=== PATIENT | male | born 1955 | race Caucasian/White ===

== ENCOUNTER 2020-07-31 10:57 | Day surgery (SDC) | payer OTHER ==
[2020-07-27 09:46] VITALS: BMI 20.7
[~2020-07-31 10:57] MED LIST: ONDANSETRON 4 MG/2 ML VIAL IVP PRN
[2020-07-31] MEDS: LACTATED RINGERS 1,000 ML IV SCH ×2 (11:15→11:20)
[2020-07-31] MEDS ORDERED: LIDOCAINE 1% (10MG/ML) FOR IV START INTRADERMA ONE (11:20)
[2020-07-31 11:34] VITALS: TEMP 97.8
[2020-07-31] MEDS ORDERED: LIDOCAINE 1% INJ 10MG/ML (20 ML MDV) ONE (12:11)
[2020-07-31] MEDS ORDERED: PROPOFOL 10 MG/ML 20 ML VIAL IV ONE (12:11)
--- NOTE | 2020-07-31 12:55 | P.PCN ---
Date of Procedure: 07/31/20 Description of Procedure: Brief history: Patient is a pleasant 65-year-old male presents for outpatient esophagogastroduodenoscopy and colonoscopy for evaluation of GERD and screening for malignant neoplasm colon. Long-standing history of reflux. Currently takes Tums as needed for reflux. No prior EGD or colonoscopy. No family history of colon cancer. Procedure performed: Esophagogastroduodenoscopy with biopsy Colonoscopy Estimated blood loss: Minimal. Preoperative diagnosis: Anesthesia: MAC Procedure: After informed consent was obtained from the patient was brought into the endoscopy unit and IV sedation was administered by anesthesia under continuous monitoring. Initially upper endoscopy was done. The Olympus GF 190 video endoscope was inserted into the mouth and esophagus intubated without any difficulty and was gradually advanced into the stomach and duodenum and carefu lly examined. The bulb and second part of the duodenum appeared normal, with biopsies taken to rule out celiac sprue. The scope was then withdrawn into the stomach adequately insufflated with air and upon careful examination the antrum and body, cardia and fundus appeared normal, except for some mild punctate erythema throughout the entire stomach suggestive of mild gastritis with biopsies of antrum and body taken. The scope was then withdrawn into the esophagus. The GE junction was located at 40 cm to the incisors. It appeared regular with no erythema erosions or ulcerations. Rest of the esophagus appeared normal, with lower esophageal biopsies taken. Patient tolerated the procedure well. At this time the patient continued to remain sedation. Initial digital rectal examination was normal. Olympus CF 190 video colonoscope was then inserted into the rectum and gradually advanced to the cecum without any difficulty. Careful examination was performed as the scope was gradually being withdrawn. The prep was excellent. The cecum, ascending colon, transverse colon, descending colon, sigmoid colon and rectum appeared normal, with a few scattered diverticula noted in the sigmoid colon. Retroflexion was performed in the rectum and no lesions were noted, low-grade internal hemorrhoids seen. Patient tolerated the procedure well. Impression: 1. Mild gastritis. Biopsies of the duodenum, antrum body and lower esophagus. 2. Mild sigmoid diverticulosis. Internal hemorrhoids. Otherwise normal- appearing colon from rectum to cecum. Recommendations: Findings of this examination were discussed with the patient as well as his family. Okay to resume diet. Okay to resume medications. Recommend fiber supplementation. Recommend repeat colonoscopy in 10 years for screening for malignant neoplasm of the colon or sooner if signs or symptoms which warrant further evaluation develop.
[2020-07-31 13:07] VITALS: BP 132/78; PULSE 62; RESP 16
== END 2020-07-31 13:24 | disposition home or self-care (01) ==
LOC: ORWHC2ENDO 10:57
PROVIDERS: ATTEND Internal Medicine
DX: Z12.11 Encounter for screening for malignant neoplasm of colon (principal); K57.30 Diverticulosis of large intestine without perforation or abscess without bleeding; K29.50 Unspecified chronic gastritis without bleeding; K29.80 Duodenitis without bleeding; K21.9 Gastro-esophageal reflux disease without esophagitis; K64.8 Other hemorrhoids; Z79.82 Long term (current) use of aspirin; Z90.89 Acquired absence of other organs; Z98.890 Other specified postprocedural states; F17.200 Nicotine dependence, unspecified, uncomplicated; G43.909 Migraine, unspecified, not intractable, without status migrainosus
CPT/HCPCS: 88305; 88342; 43239; J2001; J2704; G0121; 45378

== ENCOUNTER 2021-01-14 15:06 | Emergency (ER) | payer OTHER ==
[2021-01-14 16:06] VITALS: BP 148/80; PULSE 79; RESP 18; TEMP 98.5
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
== END 2021-01-14 18:36 | disposition home or self-care (01) ==
LOC: EC 15:06
DX: S22.20XA Unspecified fracture of sternum, initial encounter for closed fracture (principal); F17.200 Nicotine dependence, unspecified, uncomplicated; V49.9XXA Car occupant (driver) (passenger) injured in unspecified traffic accident, initial encounter
CPT/HCPCS: 71046; 71120; 93005; 99284

== ENCOUNTER 2021-01-22 10:08 | Emergency (ER) | payer OTHER ==
[2021-01-22 10:24] VITALS: BP 143/85; PULSE 78; RESP 18; TEMP 98.2
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
== END 2021-01-22 14:04 | disposition home or self-care (01) ==
LOC: EC 10:08
DX: R51.9 Headache, unspecified (principal); H93.13 Tinnitus, bilateral; F17.200 Nicotine dependence, unspecified, uncomplicated; V43.52XA Car driver injured in collision with other type car in traffic accident, initial encounter
CPT/HCPCS: 70450; 72125; 99284

== ENCOUNTER → 2021-02-21 | Outpatient (CLI) | payer OTHER ==
--- NOTE | 2021-02-21 13:42 | MR ---
EXAMINATION TYPE: MR brain and iac wo/w con DATE OF EXAM: 02/21/2021 1:20 PM COMPARISON: NONE HISTORY: Hearing loss TECHNIQUE: Multiplanar and multispin-echo imaging of the brain was performed both before and after the administr ation of contrast. High-resolution images are obtained of the internal auditory canals performed uti lizing 6 mL intravenous Gadavist contrast. The ventricles, basal cisterns and sulci overlying the cerebral convexities are within normal limits. There is no evidence for midline shift or mass effect. Acute intracranial hemorrhage or extra-axial collection is not evident. There are no abnormal areas of increased or decreased signal intensity within the brain parenchyma. High-resolution imaging of the internal auditory canals fails demonstrate evidence for an enhancing a coustic schwannoma or cerebellopontine cistern angle mass. Following contrast administration, there is no evidence for pathologic enhancement or enhancing mass. The paranasal sinuses and mastoid air cells are well-aerated. IMPRESSION: 1. No evidence of acoustic schwannoma or cerebellopontine angle mass.
== END | disposition home or self-care (01) ==
LOC: RADMRIMAIN 12:12
PROVIDERS: ATTEND Otolaryngology
DX: H93.19 Tinnitus, unspecified ear (principal)
CPT/HCPCS: 70553; A9585

== ENCOUNTER 2021-08-05 11:51 | Emergency (ER) | payer OTHER ==
[2021-08-05] MEDS ORDERED: SODIUM CHLORIDE 0.9% 1,000 ML IV STA (12:48)
[2021-08-05] MEDS ORDERED: ONDANSETRON 4 MG/2 ML VIAL IVP STA (12:48)
[2021-08-05] MEDS ORDERED: PANTOPRAZOLE 40 MG/10 ML VIAL IVP STA (12:48)
--- NOTE | 2021-08-05 12:54 | ED ---
General Adult HPI - General Chief complaint: Recheck/Abnormal Lab/Rx Stated complaint: Anorexia Time Seen by Provider: 08/05/21 12:39 Source: patient, RN notes reviewed Mode of arrival: ambulatory Limitations: no limitations - History of Present Illness Initial comments: Patient is a pleasant 66-year-old male presenting to the emergency department with concerns for not feeling well for the past 6 or 7 years. Patient's appetite has been down. Patient states he gets hungry however becomes full. Quickly. Patient did have upper and lower scope done around a year ago and those were reported as normal. Patient's son does have history of hernia, pos sible hiatal hernia as well as gallbladder problems and patient questions if he has similar. Patient once on ENT and had a scope done from them as well with concerns for some reflux. Patient was placed on medication with some improvement of symptoms. Patient has been fatigued. - Related Data Home Medications Medication Instructions Recorded Confirmed Aspirin [Adult Low Dose Aspirin EC] 81 mg PO DAILY 07/27/20 07/31/20 Calcium Carbonate [Tums] 500 mg PO DIRECTED PRN 07/27/20 07/31/20 Previous Rx's Medication Instructions Recorded Pantoprazole [Protonix] 40 mg PO DAILY #30 tab 08/05/21 Allergies Allergy/AdvReac Type Severity Reaction Status Date / Time No Known Allergies Allergy Verified 01/22/21 10:24 Review of Systems ROS Statement: Those systems with pertinent positive or pertinent negative responses have been documented in the HPI. ROS Other: All systems not noted in ROS Statement are negative. Constitutional: Denies: fever Eyes: Denies: eye pain ENT: Denies: ear pain Respiratory: Denies: dyspnea Cardiovascular: Denies: chest pain Endocrine: Reports: fatigue Gastrointestinal: Reports: as per HPI. Denies: vomiting, diarrhea Genitourinary: Denies: dysuria Musculoskeletal: Denies: back pain Skin: Denies: rash Neurological: Denies: weakness Past Medical History Past Medical History: GERD/Reflux Additional Past Medical History / Comment(s): migraines, heart murmer, hx rheumatic fever as child, History of Any Multi-Drug Resistant Organisms: None Reported Past Surgical History: Tonsillectomy Additional Past Surgical History / Comment(s): eye surgery age 4 for lazy eye, Past Anesthesia/Blood Transfusion Reactions: Motion Sickness Past Psychological History: No Psychological Hx Reported Smoking Status: Current every day smoker Past Alcohol Use History: Rare Past Drug Use History: Marijuana - Past Family History Mother Family Medical History: Cancer Additional Family Medical History / Comment(s): breast Sister(s) Family Medical History: Cancer Additional Family Medical History / Comment(s): breast General Exam Limitations: no limitations General appearance: alert, in no apparent distress Head exam: Present: normocephalic Eye exam: Present: normal appearance Neck exam: Present: normal inspection Respiratory exam: Present: normal lung sounds bilaterally Cardiovascular Exam: Present: regular rate, normal rhythm GI/Abdominal exam: Present: soft, normal bowel sounds. Absent: distended, tend erness, guarding, rebound, rigid, pulsatile mass Extremities exam: Present: normal inspection Neurological exam: Present: alert Psychiatric exam: Present: normal affect, normal mood Skin exam: Present: normal color Course Vital Signs 08/05/21 08/05/21 12:30 13:48 Temperature 98.2 F 97.8 F Pulse Rate 82 81 Respiratory 18 20 Rate Blood Pressure 150/85 156/80 O2 Sat by Pulse 98 96 Oximetry Medical Decision Making - Medical Decision Making Patient reevaluated and resting comfortably in bed. Patient updated on results and need for follow-up. - Lab Data Result diagrams: 08/05/21 13:01 08/05/21 13:01 Lab Results 08/05/21 08/05/21 08/05/21 Range/Units 13:01 13:01 13:01 WBC 12.7 H (3.8-10.6) k/uL RBC 4.77 (4.30-5.90) m/uL Hgb 15.1 (13.0-17.5) gm/dL Hct 44.9 (39.0-53.0) % MCV 94.0 (80.0-100.0) fL MCH 31.7 (25.0-35.0) pg MCHC 33.7 (31.0-37.0) g/dL RDW 13.5 (11.5-15.5) % Plt Count 252 (150-450) k/uL MPV 8.3 Neutrophils % 81 % Lymphocytes % 13 % Monocytes % 4 % Eosinophils % 0 % Basophils % 0 % Neutrophils # 10.3 H (1.3-7.7) k/uL Lymphocytes # 1.7 (1.0-4.8) k/uL Monocytes # 0.5 (0-1.0) k/uL Eosinophils # 0.1 (0-0.7) k/uL Basophils # 0.0 (0-0.2) k/uL Sodium 135 L (137-145) mmol/L Potassium 4.2 (3.5-5.1) mmol/L Chloride 105 (98-107) mmol/L Carbon Dioxide 21 L (22-30) mmol/L Anion Gap 9 mmol/L BUN 11 (9-20) mg/dL Creatinine 0.95 (0.66-1.25) mg/dL Est GFR (CKD-EPI)AfAm >90 (>60 ml/min/1.73 sqM) Est GFR (CKD-EPI)NonAf 85 (>60 ml/min/1.73 sqM) Glucose 98 (74-99) mg/dL Calcium 9.5 (8.4-10.2) mg/dL Total Bilirubin 0.7 (0.2-1.3) mg/dL AST 28 (17-59) U/L ALT 26 (4-49) U/L Alkaline Phosphatase 183 H (38-126) U/L Total Protein 7.5 (6.3-8.2) g/dL Albumin 4.6 (3.5-5.0) g/dL Amylase 106 (30-110) U/L Lipase 186 (23-300) U/L Urine Color Yellow Urine Appearance Clear (Clear) Urine pH 5.5 (5.0-8.0) Ur Specific [place] 1.007 (1.001-1.035) Urine Protein Trace H (Negative) Urine Glucose (UA) Negative (Negative) Urine Ketones Negative (Negative) Urine Blood Negative (Negative) Urine Nitrite Negative (Negative) Urine Bilirubin Negative (Negative) Urine Urobilinogen <2.0 (<2.0) mg/dL Ur Leukocyte Esterase Negative (Negative) - Radiology Data Radiology results: report reviewed (Ultrasound shows borderline common bile duct size, otherwise no acute process.), image reviewed (Abdominal x-ray reveals no acute process.) Disposition Clinical Impression: Anorexia Disposition: HOME SELF-CARE Condition: Stable Instructions (If sedation given, give patient instructions): Anorexia Nervosa (ED), GERD (Gastroesophageal Reflux Disease) (ED) Additional Instructions: Please follow-up with primary care physician in the next couple days for recheck. Please also follow-up with gastroenterology, number provided. Consider HIDA scan. Prescription for medicine for your Stomach has been sent to pharmacy. Prescriptions: Pantoprazole [Protonix] 40 mg PO DAILY #30 tab Is patient prescribed a controlled substance at d/c from ED?: No Referrals: James Gunderson MD [STAFF PHYSICIAN] - 1-2 days Jocelin Dukes MD [STAFF PHYSICIAN] - 1-2 days Time of Disposition: 15:06
[2021-08-05 13:14] LABS: Appearance,Urine Clear (Clear); Bilirubin,Urine Negative (Negative); Blood,Urine Negative (Negative); Color,Urine Yellow; Glucose,Urine (UA) Negative (Negative); Ketones,Urine Negative (Negative); Leukocyte Esterase,Urine Negative (Negative); Nitrite,Urine Negative (Negative); PH, Urine 5.5 (5.0-8.0); Protein,Urine Trace (Negative); Specific Gravity,Urine 1.007 (1.001-1.035); Urobilinogen,Urine <2.0 mg/dL (<2.0)
--- NOTE | 2021-08-05 13:23 | XR ---
KUB HISTORY: Abdominal pain Frontal KUB and 2 images, no comparisons There is a spinal curvature present. Rotatory scoliosis is suspected convex right. There are degenera tive disc changes. No evident bowel obstruction or pneumoperitoneum. No pathologic calcification is e vident. Possible phleboliths within the pelvis. Oval densities over the midline may be related to sto ol within the rectum but are indeterminate. IMPRESSION: Nonspecific bowel gas pattern.
[2021-08-05 13:27] LABS: Basophils % (A) 0 %; Eosinophils # (A) 0.1 k/uL (0-0.7); Eosinophils % (A) 0 %; HCT 44.9 % (39.0-53.0); HGB 15.1 gm/dL (13.0-17.5); Lymphocytes # (A) 1.7 k/uL (1.0-4.8); Lymphocytes % (A) 13 %; MCH 31.7 pg (25.0-35.0); MCHC 33.7 g/dL (31.0-37.0); Mean Platelet Volume 8.3; Monocytes # (A) 0.5 k/uL (0-1.0); Monocytes % (A) 4 %; Neutrophils # (A) 10.3 k/uL (1.3-7.7); Neutrophils % (A) 81 %; Platelet Count 252 k/uL (150-450); RBC 4.77 m/uL (4.30-5.90); RDW 13.5 % (11.5-15.5); WBC 12.7 k/uL (3.8-10.6)
[2021-08-05 13:29] LABS: ALT 26 U/L (4-49); AST 28 U/L (17-59); African American GFR (CKD) >90 (>60 ml/min/1.73 sqM); Albumin 4.6 g/dL (3.5-5.0); Alkaline Phosphatase 183 U/L (38-126); Amylase 106 U/L (30-110); Anion Gap 9 mmol/L; Blood Urea Nitrogen 11 mg/dL (9-20); Calcium 9.5 mg/dL (8.4-10.2); Carbon Dioxide 21 mmol/L (22-30); Chloride 105 mmol/L (98-107); Glucose 98 mg/dL (74-99); Lipase 186 U/L (23-300); Non-African American GFR(CKD) 85 (>60 ml/min/1.73 sqM); Potassium 4.2 mmol/L (3.5-5.1); Sodium 135 mmol/L (137-145); Total Bilirubin 0.7 mg/dL (0.2-1.3); Total Protein 7.5 g/dL (6.3-8.2)
[2021-08-05 13:52] VITALS: RESP 20; TEMP 97.8
--- NOTE | 2021-08-05 14:01 | US ---
EXAMINATION TYPE: US gallbladder DATE OF EXAM: 08/05/2021 COMPARISON: NONE CLINICAL HISTORY: dysphagia. EXAM MEASUREMENTS: Liver Length: 11.4 cm Gallbladder Wall: 0.2 cm CBD: 0.7 cm Right Kidney: 10.8 x 3.7 x 4.4 cm Pancreas: Tail obscured by overlying bowel gas Liver: homogeneous Gallbladder: wnl Evidence for sonographic Chaves's sign: No CBD: Upper limit of normal patient's age group Right Kidney: wnl IMPRESSION: Borderline common bile duct measurement.
[2021-08-05 15:30] VITALS: BP 136/80; PULSE 84
== END 2021-08-05 15:29 | disposition home or self-care (01) ==
LOC: EC 11:51
DX: R63.0 Anorexia (principal); K21.9 Gastro-esophageal reflux disease without esophagitis; F17.200 Nicotine dependence, unspecified, uncomplicated; F12.90 Cannabis use, unspecified, uncomplicated; Z79.82 Long term (current) use of aspirin; Z79.899 Other long term (current) drug therapy; Z68.21 Body mass index [BMI] 21.0-21.9, adult
CPT/HCPCS: 36415; 80053; 82150; 83690; 85025; 81003; 74018; 76705; 99284; 96374; 96375; J2405; C9113

== ENCOUNTER → 2022-05-28 | Outpatient (CLI) | payer MEDICARE, OTHER ==
--- NOTE | 2022-05-28 08:33 | CTL ---
EXAMINATION TYPE: CT Low Dose Lung DATE OF EXAM ORDERED: 05/28/2022 HISTORY: Long-term tobacco use. Lung cancer screening CT DLP: 74.[address] CTDI: 1.7 mGy Automated exposure control for dose reduction was used. SCREENING VISIT: Baseline COMPARISON: None TECHNIQUE: Low dose computed tomography scan was performed through the chest at 1 mm thick sections a nd reconstructed images in multiple planes at 1 mm and [address] DIAGNOSTIC QUALITY: Satisfactory FINDINGS: LUNG NODULES: None. LUNGS: COPD: Severity: Mild Fibrosis: Severity: Mild left apical. More moderate right apical with calcification. Mild linear biba silar Lymph nodes: Other findings: Ascending aortic aneurysm up to 4.1 cm axial image 34 series 5. Linear density the le loulou of the aortic valve could reflect valvular calcification RIGHT PLEURAL SPACE: Effusion: None Calcification: Focal calcification superiorly in the apex Thickening: None Pneumothorax: None LEFT PLEURAL SPACE: Effusion: None Calcification: None Thickening: None Pneumothorax: None HEART: Heart Size: Normal Coronary Calcification: Mild Pericardial Effusion: None OTHER FINDINGS: Upper abdomen: None Bony thorax: There is slight S-shaped scoliosis Supraclavicular region: None Other: None IMPRESSION: Mild emphysematous change without suspicious nodules. CT LUNG RAD AND CT CHEST RECOMMENDATION: Lung-Rad 1 Negative: Continue annual screening with LDCT in 12 months. S Modifier (other clinically significant findings): S Ascending aortic aneurysm up to 4.1 cm. Possible calcified thickened aortic valve. Advise cardiac ech o correlation.
== END | disposition home or self-care (01) ==
LOC: RADCTMAIN 07:45
PROVIDERS: ATTEND Family Medicine
DX: Z12.2 Encounter for screening for malignant neoplasm of respiratory organs (principal); J43.9 Emphysema, unspecified; F17.211 Nicotine dependence, cigarettes, in remission
CPT/HCPCS: 71271

== ENCOUNTER → 2022-05-29 | Outpatient (CLI) | payer MEDICARE, OTHER ==
--- NOTE | 2022-05-30 10:58 | CA ---
Exercise Stress Test Report Name: Burt Maher Exam Date: 05/29/2022 11:13 Exam Location: [facility] Ht (in): 70 Wt (lb): 155 BSA: 1.87 Ordering Phys: Albaro Michelle DO Referring Phys: Leana Alvarez PAC Technologist: Fermin Matamoros Age: 67 Gender: M : 1955 Procedure CPT: Indications: R53.83 Fatigue R07.9 chest pain ICD-10 Codes: Patient History: CHEST PAIN, DIFFICULTY IN BREATHING, PALPITATIONS, FAMILY HX OF HEART DISEASE, PRIOR SMOKER - QUIT 1 YEAR (1 PPD X 50 YEARS) Medications: PRILOSEC, ASA Meds past 24 hrs: Pretest Chest Pain: STRESS TEST Jesse Protocol Exercise Duration (min:sec): 06:[address] Depressions (mm): Angina Score: Abad Score: Resting HR (bpm): 74 Peak HR (bpm): 133 Resting BP (mmHg): 136 / 73 Peak BP (mmHg): 195 / 110 MPHR: 155 Target HR: 132 % MPHR: 86 METS: 7.4 Total Dose: Peak Dose: Atropine: Double Product: 59295 BP Response: Stress Termination: FATIGUE, PT ASKED TO STOP/ TARGET HR Stress Symptoms: Stress Summary: ECG ANALYSIS Resting ECG: Stress ECG: CONCLUSIONS Good exercise tolerance. The patient exercised for 6 minutes and 18 seconds and achieved 7.4 METS Mild EKG changes in response to exercise The patient developed symptoms of being tired and fatigued at the peak of the heart rate Dr. Colin Adame MD (Electronically Signed) Final Date: 30 May 2022 10:57
== END | disposition home or self-care (01) ==
LOC: RADNMMAIN 10:42
PROVIDERS: ATTEND Family Medicine
DX: F17.211 Nicotine dependence, cigarettes, in remission (principal); R53.83 Other fatigue; R07.9 Chest pain, unspecified
CPT/HCPCS: 93017

== ENCOUNTER → 2022-06-13 | Outpatient (CLI) | payer MEDICARE, OTHER ==
--- NOTE | 2022-06-13 17:30 | CA ---
Transthoracic Echo Report Name: Burt Maher Age: 67 Gender: M : 1955 Exam Date: 06/13/2022 14:57 Exam Location: [facility] Ht (in): 70 Wt (lb): 155 Ordering Physician: Albaro Michelle DO Attending/Referring Phys: Albaro Michelle DO Hvac Service Technician Belén Bruner RDCS Procedure CPT: Indications: I71.21 Aneurysm of ascending aorta, w/o rupture Cardiac Hx: Technical Quality: Technically difficult study Contrast 1: Lumason Total Dose (mL): 4 Contrast 2: Total Dose (mL): MEASUREMENTS (Male / Female) Normal Values 2D ECHO LV Diastolic Diameter PLAX 4.4 cm 4.2 - 5.9 / 3.9 - 5.3 cm LV Systolic Diameter PLAX 3.1 cm IVS Diastolic Thickness 1.3 cm 0.6 - 1.0 / 0.6 - 0.9 cm LVPW Diastolic Thickness 1.2 cm 0.6 - 1.0 / 0.6 - 0.9 cm LV Relative Wall Thickness 0.6 M-MODE Aortic Root Diameter MM 2.3 cm LA Systolic Diameter MM 3.5 cm LA Ao Ratio MM 1.5 DOPPLER AV Peak Velocity 150.7 cm/s AV Peak Gradient 9.1 mmHg AV Mean Velocity 108.0 cm/s AV Mean Gradient 5.3 mmHg AV Velocity Time Integral 29.6 cm LVOT Peak Velocity 74.1 cm/s LVOT Peak Gradient 2.2 mmHg LVOT Velocity Time Integral 16.0 cm TR Peak Velocity 281.2 cm/s TR Peak Gradient 31.6 mmHg Right Ventricular Systolic Press 35.9 mmHg FINDINGS Left Ventricle Mildly increased left ventricular wall thickness. Normal left ventricular systolic function with no obvious regional wall motion abnormalities. Left ventricular cavity size normal. Left ventricular ejection fraction is estimated at 50-55 %. Right Ventricle Normal right ventricular size and function. Mild pulmonary hypertension. Right Atrium Right atrium not well visualized. Left Atrium Normal left atrial size. Mitral Valve Structurally normal mitral valve. Mild mitral annular calcification. Aortic Valve No aortic valve stenosis or regurgitation. Tricuspid Valve Structurally normal tricuspid valve. Mild tricuspid regurgitation. Pulmonic Valve Pulmonic valve not well visualized. Pericardium No pericardial effusion. Aorta Normal size aortic root and proximal ascending aorta. CONCLUSIONS Mild increased left ventricular wall thickness Left ventricular ejection fraction 50-55% RVSP 36 Mild mitral annular calcification Mild tricuspid regurgitation Previewed by: Dr. Manuel Matthews DO (Electronically Signed) Final Date: 13 June 2022 17:30
== END | disposition home or self-care (01) ==
LOC: RADECHMAIN 14:55
PROVIDERS: ATTEND Family Medicine
DX: I08.1 Rheumatic disorders of both mitral and tricuspid valves (principal); I71.21 Aneurysm of the ascending aorta, without rupture; R53.83 Other fatigue; M54.16 Radiculopathy, lumbar region
CPT/HCPCS: C8929; Q9950; 93306

== ENCOUNTER → 2022-06-20 | Outpatient (CLI) | payer MEDICARE, OTHER ==
--- NOTE | 2022-06-20 12:36 | MR ---
EXAMINATION TYPE: MR lumbar spine wo con DATE OF EXAM: 06/20/2022 COMPARISON: None HISTORY: Lower back pain, bilateral leg numbness. TECHNIQUE: Multiplanar, multisequence images of the lumbar spine were acquired without IV contrast. Lumbar segments are intact. No paraspinal masses are identified. Conus medullaris has a normal appe arance. Dextrocurvature of the thoracolumbar spine with apex at L1. Schmorl's node involving the infe rior endplate of L1 and superior endplate of L2 surrounding edema, and superior endplate of L5 and in ferior endplate of L4 and inferior endplate of L5 with surrounding edema. There is a partially visual ized 6 mm right synovial cyst at T12-L1. L1-L2: Disc desiccation is present. No herniation, protrusion or disc bulging. No canal stenosis is present. Foramina are patent bilaterally. L2-L3: Disc desiccation is present. No herniation, protrusion or disc bulging. No canal stenosis is present. Foramina are patent bilaterally. L3-L4: Disc desiccation is present. No herniation, protrusion or disc bulging. No canal stenosis is present. Foramina are patent bilaterally. L4-L5: Disc desiccation is present. Eccentric right disc bulge without significant effacement of the anterior thecal sac. Bilateral facet arthropathy is significant neuroforaminal stenosis. L5-S1: Disc desiccation is present. Broad-based disc bulge without significant effacement of the ante rior thecal sac. Mild facet arthropathy. Foramina are patent bilaterally. IMPRESSION: 1. No evidence of disc herniation. 2. Mild multilevel degenerative disease without significant central canal or neuroforaminal stenosis. 3. Multilevel acute appearing Schmorl's nodes as described above. 4. Dextro scoliotic curvature of the thoracolumbar spine.
== END | disposition home or self-care (01) ==
LOC: RADMRIMAIN 11:36
PROVIDERS: ATTEND Family Medicine
DX: M51.16 Intervertebral disc disorders with radiculopathy, lumbar region (principal); M41.34 Thoracogenic scoliosis, thoracic region; R53.1 Weakness
CPT/HCPCS: 72148

== ENCOUNTER → 2023-10-23 | Outpatient (CLI) | payer MEDICARE, OTHER ==
--- NOTE | 2023-11-21 11:04 | US ---
Burt Maher : 1955 EXAMINATION TYPE: US carotid duplex BILAT DATE OF EXAM: 10/23/2023 COMPARISON: NONE CLINICAL INDICATION: 68-year-old male [id number], dizziness and giddiness TECHNIQUE: Carotid duplex ultrasound examination. Indirect Doppler criteria was utilized. FINDINGS: EXAM MEASUREMENTS: RIGHT: Peak Systolic Velocity (PSV) cm/sec ----- Right CCA: 70.2 ----- Right ICA: 80.1 ----- Right ECA: 80.5 ICA/CCA ratio: 1.1 RIGHT: End Diastole cm/sec ----- Right CCA: 21.9 ----- Right ICA: 28.5 ----- Right ECA: 14.1 LEFT: Peak Systolic Velocity (PSV) cm/sec ----- Left CCA: 81.8 ----- Left ICA: 90.0 ----- Left ECA: 178.7 ICA/CCA ratio: 1.1 LEFT: End Diastole cm/sec ----- Left CCA: 23.8 ----- Left ICA: 35.1 ----- Left ECA: 25.3 VERTEBRALS (direction of flow): Right Vertebral: Antegrade Left Vertebral: No flow identified, possibly occluded IMPRESSION: 1. No hemodynamically significant internal carotid artery stenosis on either side. 2. Unable to identify flow in the region of the left vertebral artery. Findings may reflect occlusion of the left vertebral artery. Criteria for Assigning % of Stenosis / Diameter reduction (Estimation based on the indirect measurements of the internal carotid artery velocities (ICA PSV). 1. Normal (no stenosis)=ICA PSV < 125 cm/s: ratio < 2.0: ICA EDV<40 cm/s. 2. Less than 50% stenosis=ICA PSV < 125 cm/s: ratio < 2.0: ICA EDV<40 cm/s. 3. 50 to 69% stenosis=ICA PSV of 125 to 230 cm/s: ration 2.0 ? 4.0: ICA EDV 40-100 cm/s. 4. Greater than 70% stenosis to near occlusion= ICA PSV > 230 cm/s: ratio > 4.0: ICA EDV > 100 cm/s. 5. Near occlusion= ICA PSV velocities may be low or undetectable: variable ratio and ICA EDV. 6. Total occlusion=unable to detect flow.
== END | disposition home or self-care (01) ==
LOC: RADUSWWP 12:00
PROVIDERS: ATTEND Family Medicine
DX: R42 Dizziness and giddiness (principal)
CPT/HCPCS: 93880